=== PATIENT | male | born 1980 | race Caucasian/White ===

== ENCOUNTER 2021-02-21 18:36 | Inpatient (IN) | payer OTHER ==
[~2021-02-21] VITALS: Ht 177.8 cm; Wt 75.7 kg
--- NOTE | 2021-02-21 18:36 | NUR ---
Patient brought in by 81 for bleeding post colon resection, colon resection done 3 weeks ago, patient is alert and oriented x4, 18 gauge noted in left wrist and present on arrival, 500 ml of Normal saline given by parametics, 1 Liter bag noted in progress also given by paramedics, MD at bedside for assessment at this time
[2021-02-21] MEDS ORDERED: PANTOPRAZOLE SODIUM 40 MG VIAL IV ONE (19:00)
[2021-02-21] MEDS ORDERED: IV NORMAL SALINE 1000 ML BAG IV ONE (19:00)
--- NOTE | 2021-02-21 19:05 | NUR ---
Recieved patient from Amina RN
[2021-02-21] MEDS ORDERED: PANTOPRAZOLE SODIUM 40 MG VIAL ONE (19:16)
[2021-02-21 19:28] LABS: BASOPHILS % (AUTO) 0.7 % (0.0-2.0); LYMPHOCYTES # (AUTO) 0.3 K/uL (20.0-40.0); MONOCYTES # (AUTO) 0.3 K/uL (2.0-10.0); MONOCYTES % (AUTO) 7.1 % (0.0-11.0); NEUTROPHILS # (AUTO) 3.4 K/uL (1.8-8.9)
[2021-02-21 19:30] LABS: EOSINOPHILS % (AUTO) 0.9 % (0.0-7.0); LYMPHOCYTES % (AUTO) 8.1 % (20.5-51.5); MEAN CORPUSCULAR HEMOGLOBIN 32.9 uug (23.8-33.4); MEAN CORPUSCULAR HGB CONC 33 g/dL (32.5-36.3); MEAN CORPUSCULAR VOLUME 98.6 fL (73.0-96.2); NEUTROPHILS % (AUTO) 83.2 % (38.5-71.5); PLATELET COUNT (AUTO) 292 K/uL (152-348)
[2021-02-21 19:32] LABS: RED BLOOD CELL COUNT(AUTO) 1.63 MIL/uL (4.06-5.63)
[2021-02-21 19:33] LABS: CREATININE 0.9 mg/dL (0.6-1.3); POTASSIUM 3.7 mmol/L (3.5-5.1)
[2021-02-21 19:34] LABS: HEMOGLOBIN 5.4 g/dL (12.5-16.3)
[2021-02-21 19:38] LABS: BILIRUBIN,DIRECT 0.1 mg/dL (0.0-0.2); BILIRUBIN,TOTAL 0.2 mg/dL (0.2-1.0); TOTAL PROTEIN, SERUM 4.9 g/dL (6.4-8.2)
[2021-02-21 19:56] LABS: EOSINOPHILS % (MANUAL) 1 % (0-8); LYMPHOCYTES % (MANUAL) 8 % (20-40); MONOCYTES % (MANUAL) 7 % (2-10); NEUTROPHILS % (MANUAL) 84 % (42-75)
[2021-02-21] MEDS ORDERED: EZET10TA15 PO (20:11)
[2021-02-21] MEDS ORDERED: NIFE60TA2 PO (20:11)
[2021-02-21] MEDS ORDERED: ROSU10TA2 PO (20:11)
[2021-02-21] MEDS ORDERED: ASPI81TA31 PO (20:11)
[2021-02-21] MEDS ORDERED: MV-M1TAB18 PO (20:11)
[2021-02-21] MEDS ORDERED: DILT30TA2 PO (20:11)
--- NOTE | 2021-02-21 21:17 | NUR ---
pre-transfusion temp 99.9, Dr. Kuo made aware. New orders were given.
--- NOTE | 2021-02-21 21:29 | NUR ---
Patient will go to CCU4
[2021-02-21] MEDS ORDERED: ACETAMINOPHEN ES 500 MG TABLET PO ONE (21:30)
[2021-02-21] MEDS ORDERED: ACETAMINOPHEN ES 500 MG TABLET ONE (21:31)
--- NOTE | 2021-02-21 22:12 | NUR ---
Report given to Lei HYLTON in ICU
[2021-02-21] MEDS ORDERED: ONDANSETRON 4 MG/2 ML VIAL IV PRN (22:30)
[2021-02-21] MEDS ORDERED: MORPHINE SULFATE 2 MG/1 ML DISP.SYRIN IV PRN (22:30)
[2021-02-21] MEDS ORDERED: MAGNESIUM HYDROXIDE 30 ML LIQUID UDC PO PRN (22:30)
--- NOTE | 2021-02-21 23:45 | NUR ---
Patient brought to [facility] via gurney, further bedside report given to Lei HYLTON. No incident noted during transfer. No reaction noted to blood transfusion.
[2021-02-22] VITALS (18 sets, daily range): BP systolic 100–145; BP diastolic 58–93
[2021-02-22] MEDS: ZOLPIDEM 5 MG TABLET PO PRN ×2 (00:33→22:02)
[2021-02-22] MEDS ORDERED: IV NORMAL SALINE 250 ML IV PRN (04:00)
[2021-02-22] MEDS: IV D5 1/2 NS 1000 ML 1,000 ML IV PRN ×2 (04:02→20:06)
[2021-02-22 04:58] LABS: BASOPHILS % (AUTO) 1.3 % (0.0-2.0); EOSINOPHILS # (AUTO) 0.1 K/uL (0.0-0.7); EOSINOPHILS % (AUTO) 1.8 % (0.0-7.0); LYMPHOCYTES # (AUTO) 0.5 K/uL (20.0-40.0); MEAN CORPUSCULAR HEMOGLOBIN 30.8 uug (23.8-33.4); MEAN CORPUSCULAR HGB CONC 35 g/dL (32.5-36.3); MEAN CORPUSCULAR VOLUME 87.5 fL (73.0-96.2); MONOCYTES # (AUTO) 0.3 K/uL (2.0-10.0); MONOCYTES % (AUTO) 9.6 % (0.0-11.0); NEUTROPHILS # (AUTO) 2.3 K/uL (1.8-8.9); NEUTROPHILS % (AUTO) 71.3 % (38.5-71.5); PLATELET COUNT (AUTO) 214 K/uL (152-348); WHITE BLOOD COUNT (AUTO) 3.2 K/uL (3.6-10.2)
[2021-02-22 05:02] LABS: RED BLOOD CELL COUNT(AUTO) 2.12 MIL/uL (4.06-5.63)
[2021-02-22 05:04] LABS: HEMATOCRIT 18.5 % (36.7-47.1); HEMOGLOBIN 6.5 g/dL (12.5-16.3)
[2021-02-22 05:11] LABS: BILIRUBIN,TOTAL 0.5 mg/dL (0.2-1.0); CREATININE 0.9 mg/dL (0.6-1.3); MAGNESIUM 1.7 mg/dL (1.8-2.4); PHOSPHOROUS 4.5 mg/dL (2.5-4.9); POTASSIUM 3.7 mmol/L (3.5-5.1); TOTAL PROTEIN, SERUM 4.4 g/dL (6.4-8.2)
[2021-02-22 05:20] LABS: THYROID STIMULATING HORMONE 1.261 mIU/mL (0.358-3.740)
[2021-02-22 05:27] LABS: EOSINOPHILS % (MANUAL) 2 % (0-8); LYMPHOCYTES % (MANUAL) 18 % (20-40); MONOCYTES % (MANUAL) 10 % (2-10); NEUTROPHILS % (MANUAL) 70 % (42-75)
--- NOTE | 2021-02-22 06:15 | NUR ---
Large bloody red stool. Started 3rd unit PRBC's.
[2021-02-22] MEDS: PANTOPRAZOLE SODIUM 40 MG VIAL IV SCH ×2 (06:39→18:08)
--- NOTE | 2021-02-22 07:53 | NUR ---
received pt in bed. A&O x4. pt on room air. pt is ambulatory. currently running 3rd unit of PRBC which was started by environmental marketing representative. no adverse reactions noted. (L) hand IV patent.
--- NOTE | 2021-02-22 08:32 | NUR ---
pt completed blood transfusion. no adverse reactions noted. VSS
--- NOTE | 2021-02-22 08:55 | NUR ---
Dr. Gonsales in the unit to see and assess pt. full report given. Per , pt is okay to downgrade to tele.
[2021-02-22] MEDS: MAGNESIUM SULFATE/D5W 100 ML IV SCH ×2 (09:31→10:41)
[2021-02-22 12:13] LABS: HEMATOCRIT 21.7 % (36.7-47.1); HEMOGLOBIN 7.5 g/dL (12.5-16.3)
--- NOTE | 2021-02-22 12:16 | NUR ---
Received call back from GI Dr. Araya. Per , start pt on bowel prep today and colonoscopy can be done tomorrow. also spoke with the pt directly via telephone.
[2021-02-22] MEDS ORDERED: SORBITOL 70% SOLUTION 30 ML UDC PO STA (12:21)
[2021-02-22] MEDS ORDERED: GOLYTELY 4000 ML BOTTLE PO ONE (12:30)
--- NOTE | 2021-02-22 12:38 | NUR ---
pt transferred to Tele. pt ambulatory and assisted by RN to tele unit. pt left with all belongings. VSS
--- NOTE | 2021-02-22 12:45 | NUR ---
Received this 40 y/o male from CCU, ambulatory with assist. Patient is alert, oriented x 4, not in any form of distress, on room air. Peripheral IV on the left wrist G18, patent with no signs of infection. He denies any pain or discomfort at this time. Vital signs stable. Sinus rhythm on tele. Assisted with his needs. Call light and frequently used items placed within patient's reach. Report received from [facility]. Patient started on bowel prep in CCU per report.
[2021-02-22] MEDS: ACETAMINOPHEN 325 MG TABLET PO PRN (18:11)
--- NOTE | 2021-02-22 19:20 | NUR ---
CALLED DR. NEGRO INFORMING PT IS UNDERGOING HIS BOWEL PREPARATION FOR THE PROCEDURE INDER. DR. NEGRO STATED TO FINISH GOLITELY. HE WILL CALL CITIZEN PARTICIPATION SPECIALIST FOR SCHEDULE INDER.
--- NOTE | 2021-02-22 19:30 | NUR ---
PATIENT ALERT ORIENTED, NO SOB NO CHEST PAIN. PATIENT ON TELE MONITOR SINUS RHYTHM, NO COMPLAIN OF PAIN. PATIENT STATED THAT HE DOESN'T HAS BLOODY BM AT THIS TIME. CONT TO MONITOR.
[2021-02-23] VITALS (7 sets, daily range): BP systolic 116–155; BP diastolic 65–106
--- NOTE | 2021-02-23 05:58 | NUR ---
PATIENT ALERT ORIENTED, NO SOB NO CHEST PAIN. PATIENT ON TELE MONITOR SINUS RHYTHM, NO RECTAL BLEEDING NOTED, PATIENT REFUSED TO SIGN CONSENT FOR EGD, AND COLONOSCOPY, REMAINS NPO AT THIS TIME EXCEPT MEDICATION.
[2021-02-23] MEDS ORDERED: SORBITOL 70% SOLUTION 30 ML UDC PO ONE (06:00)
[2021-02-23] MEDS: PANTOPRAZOLE SODIUM 40 MG VIAL IV SCH ×2 (06:23→18:14)
[2021-02-23 06:35] LABS: BASOPHILS % (AUTO) 0.9 % (0.0-2.0); EOSINOPHILS # (AUTO) 0.1 K/uL (0.0-0.7); EOSINOPHILS % (AUTO) 4.3 % (0.0-7.0); LYMPHOCYTES # (AUTO) 0.4 K/uL (20.0-40.0); MEAN CORPUSCULAR HEMOGLOBIN 29.9 uug (23.8-33.4); MEAN CORPUSCULAR HGB CONC 34 g/dL (32.5-36.3); MEAN CORPUSCULAR VOLUME 87.1 fL (73.0-96.2); MONOCYTES # (AUTO) 0.3 K/uL (2.0-10.0); MONOCYTES % (AUTO) 9.4 % (0.0-11.0); NEUTROPHILS # (AUTO) 2.2 K/uL (1.8-8.9); NEUTROPHILS % (AUTO) 72.4 % (38.5-71.5); PLATELET COUNT (AUTO) 181 K/uL (152-348); WHITE BLOOD COUNT (AUTO) 3.1 K/uL (3.6-10.2)
[2021-02-23 06:38] LABS: CREATININE 0.8 mg/dL (0.6-1.3); POTASSIUM 3.3 mmol/L (3.5-5.1); RED BLOOD CELL COUNT(AUTO) 2.38 MIL/uL (4.06-5.63)
[2021-02-23 06:42] LABS: HEMATOCRIT 20.8 % (36.7-47.1); HEMOGLOBIN 7.1 g/dL (12.5-16.3)
--- NOTE | 2021-02-23 06:44 | NUR ---
PATIENT LATEST HGH 7.1, HCT 20.8 NOTIFY JONATHAN MUNGUIA WITH ORDER TO TRANSFUSE 1 UNIT RBC.
[2021-02-23] MEDS: ACETAMINOPHEN 325 MG TABLET PO PRN (06:53)
--- NOTE | 2021-02-23 10:00 | NUR ---
Patient is tolerating infusion well, no symptoms reported. Will continue to monitor.
[2021-02-23] MEDS: POTASSIUM CHLORIDE 50 ML IV SCH ×2 (10:15→11:15)
--- NOTE | 2021-02-23 10:16 | NUR ---
Patient is off unit. Picked up by surgery nurses, Kirstie and Amy. Will continue to monitor when patient is back on floor.
--- NOTE | 2021-02-23 12:15 | NUR ---
Patient is back on floor. Patient is stable. NS being transfused instead of blood product. Will restart transfusion. Will continue to monitor
--- NOTE | 2021-02-23 12:45 | NUR ---
Patient tolerated transfusion well. VS at the end of transfusion in 135/81 with a HR of 97. oxygen saturation is at 99%. Patient drank clahansel beltre so will recheck temperature in 20 minutes.
[2021-02-23] MEDS ORDERED: POTASSIUM CHLORIDE 20 MEQ TAB.PRT.SR PO ONE (15:35)
[2021-02-23] MEDS ORDERED: SOD FERRIC GLUC COMPLX/SUCROSE 125 MG in IV NORMAL SALINE 100 ML IV ONE (16:30)
--- NOTE | 2021-02-23 18:34 | NUR ---
Patient is resting in bed. No sign of distress noted. Gave all medications as ordered. Removed patient's IV because he reported pain at the IV site. Safety measures implemented. Will endorse to the oncoming nurse.
[2021-02-23 19:27] LABS: HEMATOCRIT 25.8 % (36.7-47.1); HEMOGLOBIN 8.9 g/dL (12.5-16.3)
[2021-02-23] MEDS ORDERED: PANT40TA2 PO (20:01)
[2021-02-23] MEDS ORDERED: PROPOFOL 200 MG/20 ML BOTTLE IV ONE (20:39)
[2021-02-23] MEDS ORDERED: LIDOCAINE-MPF 2% 5 ML VIAL IJ ONE (20:39)
--- NOTE | 2021-02-23 20:41 | NUR ---
Discharged patient to home in stable condition. D/C instruction given as well all belongings and signed by patient.
== END 2021-02-23 20:40 | disposition home or self-care (01) | DRG 378 ==
LOC: ER 18:37 → ICU 23:12 → CCU 02-22 00:26 → TELE3 02-22 12:37
PROVIDERS: ADMIT Nurse Practitioner Acute Care; ATTEND Nurse Practitioner Family
PROC: 30233N1 Transfusion of Nonautologous Red Blood Cells into Peripheral Vein, Percutaneous Approach (ICD-10-PCS; principal; 2021-02-21)
PROC: 0DJD8ZZ Inspection of Lower Intestinal Tract, Via Natural or Artificial Opening Endoscopic (ICD-10-PCS; 2021-02-23)
PROC: 0DJ08ZZ Inspection of Upper Intestinal Tract, Via Natural or Artificial Opening Endoscopic (ICD-10-PCS; 2021-02-23)
DX: K92.2 Gastrointestinal hemorrhage, unspecified (principal); D62 Acute posthemorrhagic anemia; E44.0 Moderate protein-calorie malnutrition; Z93.3 Colostomy status; Z85.038 Personal history of other malignant neoplasm of large intestine; Z92.21 Personal history of antineoplastic chemotherapy; Z90.49 Acquired absence of other specified parts of digestive tract; E78.5 Hyperlipidemia, unspecified; E86.1 Hypovolemia; I10 Essential (primary) hypertension; I48.91 Unspecified atrial fibrillation; Z79.82 Long term (current) use of aspirin; Z85.048 Personal history of other malignant neoplasm of rectum, rectosigmoid junction, and anus; R55 Syncope and collapse; R73.9 Hyperglycemia, unspecified; E88.09 Other disorders of plasma-protein metabolism, not elsewhere classified; Z79.01 Long term (current) use of anticoagulants; K29.70 Gastritis, unspecified, without bleeding; Z20.822 Contact with and (suspected) exposure to COVID-19; Z68.24 Body mass index [BMI] 24.0-24.9, adult
CPT/HCPCS: 36415; 70030-TC; 70450; 71045; 83735; 84100; 84443; 85018; 85025; 85730; 86850; 86900; 86901; 86920; 87040; 93005; A4217; A4663; A9150; C9113; G0378; J2916; J3475; J3480; J3490; J7030; J7050; P9016-BL; P9021